=== PATIENT | female | born 1965 | race Caucasian/White ===

== ENCOUNTER → 2017-08-07 | Outpatient (CLI) | payer BC, OTHER ==
[~2017-08-07] MED LIST: ALBUTEROL NEB; AUGMENTIN 875-1 EACH PO; AZOR 5-20 MG T1 EACH PO; BENTYL 20 MG TA20 M1 PO; BIRTH CONTROL; BYSTOLIC20 MG PO; IBUPROFEN; LISINOPRIL5 MG PO; NORCO 5-325 TA1 EACH PO; PHENERGAN; PHENERGAN 25 MG25 M1 PO; SENNA-S TABLET1 EACH PO; TOPROL XL50 MG; VALIUM5 MG PO; ZOFRAN 4 MG ORAL4 M1 DIS
== END ==
LOC: BC 01:50
DX: Z12.31 Encounter for screening mammogram for malignant neoplasm of breast (principal); R92.0 Mammographic microcalcification found on diagnostic imaging of breast

== ENCOUNTER → 2018-07-02 | Outpatient (CLI) | payer BC, OTHER | LOC: RAD 10:46 | DX: M25.512 Pain in left shoulder (principal); C50.912 Malignant neoplasm of unspecified site of left female breast ==

== ENCOUNTER → 2019-05-19 | Outpatient (CLI) | payer BC, OTHER | LOC: CAT 11:31 | DX: R10.32 Left lower quadrant pain (principal); Z90.49 Acquired absence of other specified parts of digestive tract ==